=== PATIENT | female | born 1975 | race Hispanic/Latino ===

== ENCOUNTER 2020-04-21 19:57 | Emergency (ER) | payer BC ==
[~2020-04-21] VITALS: Ht 160 cm; Wt 79.4 kg
[~2020-04-21 19:57] MED LIST: ACETAMINOPHEN 325 MG TAB PO ONE
[2020-04-21] MEDS ORDERED: SODIUM CHLORIDE 0.9% 1000ML 1,000 ML IV STA (20:34)
[2020-04-21] MEDS ORDERED: DIPHENHYDRAMINE HCL INJ 50 MG/ML VIAL IV ONE (20:45)
[2020-04-21] MEDS ORDERED: FUROSEMIDE INJ 10 MG/ML 4 ML VIAL IV PRN (20:45)
[2020-04-21] MEDS ORDERED: SODIUM CHLORIDE 0.9% 250ML 250 ML IV ONE (20:45)
[2020-04-21] MEDS ORDERED: IBUPROFEN IB200 MG PO (21:06)
[2020-04-21] MEDS ORDERED: ACETAMINOPHEN500 MG PO (21:06)
[2020-04-21 21:18] VITALS: BP 139/87
== END 2020-04-21 21:20 | disposition home or self-care (01) ==
LOC: FSED 20:15
DX: S93.601A Unspecified sprain of right foot, initial encounter (principal); X50.1XXA Overexertion from prolonged static or awkward postures, initial encounter; Y93.01 Activity, walking, marching and hiking; I10 Essential (primary) hypertension
CPT/HCPCS: 99283